=== PATIENT | male | born 1985 | race Caucasian/White ===

== ENCOUNTER → 2020-06-04 | Day surgery (SDC) | payer OTHER ==
[~2020-06-04] MED LIST: BENTYL10 MG PO; CARAFATE1 GM PO; CHLORZOXAZONE500 MG PO; ETODOLAC500 MG PO; FLEXERIL10 MG PO; PROTONIX 40MG T40 MG PO; VOLTAREN **OUT75 MG PO
== END | disposition home or self-care (01) ==
LOC: FAS 08:53
DX: K57.30 Diverticulosis of large intestine without perforation or abscess without bleeding (principal); K29.50 Unspecified chronic gastritis without bleeding; K58.9 Irritable bowel syndrome, unspecified; K21.9 Gastro-esophageal reflux disease without esophagitis; K25.9 Gastric ulcer, unspecified as acute or chronic, without hemorrhage or perforation; F32.9 Major depressive disorder, single episode, unspecified; K64.8 Other hemorrhoids; F41.9 Anxiety disorder, unspecified; F17.210 Nicotine dependence, cigarettes, uncomplicated; F98.8 Other specified behavioral and emotional disorders with onset usually occurring in childhood and adolescence; J45.909 Unspecified asthma, uncomplicated; E78.00 Pure hypercholesterolemia, unspecified; Z88.1 Allergy status to other antibiotic agents; Z82.49 Family history of ischemic heart disease and other diseases of the circulatory system
CPT/HCPCS: J2704; J7120

== ENCOUNTER 2021-07-28 10:12 | Emergency (ER) | payer OTHER ==
[2021-07-28 11:15] LABS: ALBUMIN 4.2 g/dL (3.4-5.0); BILIRUBIN - TOTAL 0.2 mg/dL (0.2-1.0); BUN/CREAT RATIO (CALC) 18.6 RATIO; CREATININE 0.86 mg/dL (0.67-1.17); GLOBULIN (CALCULATION) 3.5 g/dL; POTASSIUM 3.9 mmol/L (3.5-5.1); TOTAL PROTEIN 7.7 g/dL (6.4-8.2)
[2021-07-28 11:24] LABS: BASOPHIL 0.9 % (0-2); EOSINOPHIL 2.5 % (0-5); HCT 49.6 % (42.0-52.0); HGB 17.1 g/dl (13.2-18.0); LYMPHOCYTE 28.4 % (15-48); MCH 30.5 pg (25.0-31.0); MCHC 34.5 g/dL (32.0-36.0); MCV 88.4 fL (78.0-100.0); MONOCYTE 6.6 % (0-12); MPV 13.1 fL (6.0-9.5); NEUTROPHIL 61.4 % (41-80); NRBC 0; PLT 174 K/uL (150-400); RBC 5.61 M/uL (4.70-6.00); RDW 12.2 % (11.5-14.0); WBC 8.1 K/uL (4.0-10.5)
[2021-07-28 11:35] LABS: BILIRUBIN NEGATIVE (NEGATIVE); BLOOD NEGATIVE Ery/uL (NEGATIVE); CLARITY CLEAR (CLEAR); COLOR YELLOW (YELLOW); GLUCOSE (U) NORMAL (NORMAL); LEUKOCYTES NEGATIVE Leu/uL (NEGATIVE); NITRITE NEGATIVE (NEGATIVE); PROTEIN NEGATIVE (NEGATIVE); SPECIFIC GRAVITY 1.025 (1.001-1.030); UROBILINOGEN 0.2 mg/dL (0.2-1.0); pH 6.5 (5.0-9.0)
== END 2021-07-28 14:25 | disposition left against medical advice (07) ==
LOC: FER 10:12
PROVIDERS: Emergency Medicine
DX: R10.31 Right lower quadrant pain (principal); F17.210 Nicotine dependence, cigarettes, uncomplicated; Z88.1 Allergy status to other antibiotic agents; Z53.29 Procedure and treatment not carried out because of patient's decision for other reasons; Z28.310 Unvaccinated for COVID-19
CPT/HCPCS: 36415; 80053; 81003; 82150; 83690; 85025; J1170; J1885; J2405; J7030